=== PATIENT | female | born 1985 | race Caucasian/White ===

== ENCOUNTER → 2017-05-15 | Outpatient (CLI) | payer MEDICAID | LOC: HPND 10:49 | PROVIDERS: ATTEND Obstetrics & Gynecology | DX: O99.322 Drug use complicating pregnancy, second trimester (principal); O98.512 Other viral diseases complicating pregnancy, second trimester; O30.042 Twin pregnancy, dichorionic/diamniotic, second trimester | CPT/HCPCS: 76811; 76812; 76817; 76825; 76827; 93325 ==

== ENCOUNTER → 2017-06-04 | Outpatient (CLI) | payer MEDICAID | LOC: HPND 13:18 | PROVIDERS: ATTEND Obstetrics & Gynecology | DX: O30.042 Twin pregnancy, dichorionic/diamniotic, second trimester (principal); O34.212 Maternal care for vertical scar from previous cesarean delivery; O98.512 Other viral diseases complicating pregnancy, second trimester | CPT/HCPCS: 76816 ==

== ENCOUNTER → 2017-07-02 | Outpatient (CLI) | payer MEDICAID | LOC: HPND 10:29 | PROVIDERS: ATTEND Obstetrics & Gynecology | DX: O35.8XX2 Maternal care for other (suspected) fetal abnormality and damage, fetus 2 (principal); O30.043 Twin pregnancy, dichorionic/diamniotic, third trimester; O98.513 Other viral diseases complicating pregnancy, third trimester; O09.293 Supervision of pregnancy with other poor reproductive or obstetric history, third trimester; O35.1XX0 Maternal care for (suspected) chromosomal abnormality in fetus, not applicable or unspecified | CPT/HCPCS: 76816 ==

== ENCOUNTER → 2017-08-06 | Outpatient (CLI) | payer MEDICAID | LOC: HPND 13:01 | PROVIDERS: ATTEND Obstetrics & Gynecology | DX: O30.043 Twin pregnancy, dichorionic/diamniotic, third trimester (principal); O35.1XX0 Maternal care for (suspected) chromosomal abnormality in fetus, not applicable or unspecified; O99.323 Drug use complicating pregnancy, third trimester | CPT/HCPCS: 76816; 76818; 76820; 76821 ==